=== PATIENT | male | born 1980 | race Two or more races ===

== ENCOUNTER → 2024-10-26 06:24 | Day surgery (SDC) | payer BC, SELFPAY ==
[2024-10-26 13:28] LABS: Glucose - Point of Care 106 mg/dl (70-99)
== END ==
LOC: GI 06:24
PROVIDERS: ATTENDING PHYSICIAN Internal Medicine
DX: Z12.11 Encounter for screening for malignant neoplasm of colon (principal); K64.8 Other hemorrhoids
CPT/HCPCS: G0121; 82962